=== PATIENT | female | born 1990 | race American Indian/Alaskan Native ===

== ENCOUNTER 2018-10-13 22:33 | Emergency (ER) | payer OTHER ==
[2018-10-14] MEDS ORDERED: NORCO 5/325 PO ONE (01:14)
--- NOTE | 2018-10-14 02:23 | XRay Report ---
PROCEDURE: XR NECK SOFT TISSUE TECHNIQUE: 2 views obtained of the soft tissues of the neck HISTORY: neck pain swelling COMPARISONS: No priors FINDINGS: The epiglottis is normal in contour. There is no ballooning of the hypopharynx. No prevertebral soft tissue swelling. No compromise of the airway. No steepling of the airway. IMPRESSION: Normal radiographs of the soft tissues of the neck. This document is electronically signed by Rafael Iqbal MD., October 14 2018 02:21:26 AM ET
[2018-10-14 02:27] LABS: Basophils % (Auto) 0.7 % (0.0-1.8); Eosinophils % (Auto) 0.5 % (0.0-4.3); Hemoglobin 12.1 gm/dl (10.1-14.3); Lymphocytes # (Auto) 1.8 K/mm3 (1.2-5.4); Lymphocytes % (Auto) 43.8 % (13.4-35.0); Mean Corpuscular HGB Conc 34 % (30-34); Mean Corpuscular Volume 95 fl (79-97); Monocytes # (Auto) 0.6 K/mm3 (0.0-0.8); Monocytes % (Auto) 14.5 % (0.0-7.3); Platelet Count 278 K/mm3 (140-440); Red Blood Count 3.78 M/mm3 (3.65-5.03); Red Cell Distribution Width 13.2 % (13.2-15.2)
--- NOTE | 2018-10-14 02:49 | Emergency Department Report ---
ED General Adult HPI - General Chief complaint: Skin/Abscess/Foreign Body Stated complaint: SWELLING ON RIGHT SIDE OF NECK/PAIN Time Seen by Provider: 10/14/18 01:12 Source: patient Mode of arrival: Ambulatory Limitations: No Limitations - History of Present Illness Initial comments: Patient was seizure after alert female who presents for right-sided neck swelling times 2 days his shortness of breath no wheezing no stridor States seen at urgent care treated for next spasms however pain persists patient denies fevers chills is no dysphagia there is no ear pain no sinus pressure Lopressor vertebral point tenderness range of motion is intact and unrestricted. Onset/Timin -: days(s) Location: neck Radiation: non-radiation Severity scale (0 -10): 5 Quality: aching, other (sorness ) Consistency: constant Improves with: none Worsens with: movement Associated Symptoms: denies: chest pain, cough, diaphoresis, fever/chills, headaches, loss of appetite, malaise, nausea/vomiting, rash, shortness of breath, weakness Treatments Prior to Arrival: none - Related Data Previous Rx's Medication Instructions Recorded Last Taken Type Diclofenac EC [Voltaren] 25 mg PO Q8HR PRN #60 tablet 10/14/18 Unknown Rx Menthol/Camphor [[place] 1 applicatio TP QID PRN #1 tube 10/14/18 Unknown Rx Ointment] methOCARBAMOL [Robaxin TAB] 750 mg PO BID #60 tab 10/14/18 Unknown Rx Allergies Allergy/AdvReac Type Severity Reaction Status Date / Time No Known Allergies Allergy Unverified 10/13/18 22:52 ED Review of Systems ROS: Stated complaint: SWELLING ON RIGHT SIDE OF NECK/PAIN Other details as noted in HPI Constitutional: denies: chills, fever Eyes: denies: eye pain, eye discharge, vision change ENT: denies: ear pain, throat pain, congestion Respiratory: denies: cough, shortness of breath, wheezing Cardiovascular: denies: chest pain, palpitations Endocrine: no symptoms reported Gastrointestinal: denies: abdominal pain, nausea, vomiting, diarrhea Genitourinary: denies: urgency, dysuria, discharge Musculoskeletal: denies: back pain, joint swelling, arthralgia Skin: denies: rash, lesions Neurological: denies: headache, weakness, paresthesias Psychiatric: denies: anxiety, depression Hematological/Lymphatic: denies: easy bleeding, easy bruising ED Past Medical Hx - Past Medical History Previous Medical History?: Yes Additional medical history: ovarian cyst - Surgical History Past Surgical History?: Yes Additional Surgical History: Ovarian cyst removal - Social History Smoking Status: Never Smoker Substance Use Type: None - Medications Home Medications: Home Medications Medication Instructions Recorded Confirmed Last Taken Type Diclofenac EC [Voltaren] 25 mg PO Q8HR PRN #60 tablet 10/14/18 Unknown Rx Menthol/Camphor [[place] 1 applicatio TP QID PRN #1 tube 10/14/18 Unknown Rx Ointment] methOCARBAMOL [Robaxin TAB] 750 mg PO BID #60 tab 10/14/18 Unknown Rx ED Physical Exam - General Limitations: No Limitations General appearance: alert, in no apparent distress - Head Head exam: Present: atraumatic, normocephalic - Eye Eye exam: Present: normal appearance, PERRL, EOMI Pupils: Present: normal accommodation - ENT ENT exam: Present: normal orophraynx, mucous membranes moist, TM's normal bilaterally, normal external ear exam - Neck Neck exam: Present: normal inspection, tenderness, full ROM. Absent: meningismus, lymphadenopathy, thyromegaly - Expanded Neck Exam Expanded Neck exam: Present: tenderness (right lateral neck muscle tenderness to deep palpation ). Absent: midline deformity, thyroid mass, carotid bruit, tracheal deviation - Respiratory Respiratory exam: Present: normal lung sounds bilaterally. Absent: respiratory distress, wheezes, stridor, chest wall tenderness - Cardiovascular Cardiovascular Exam: Present: regular rate, normal rhythm, normal heart sounds. Absent: systolic murmur, diastolic murmur, rubs, gallop - GI/Abdominal GI/Abdominal exam: Present: soft, normal bowel sounds. Absent: distended, tenderness, bruit, hernia - Rectal Rectal exam: Present: deferred - Extremities Exam Extremities exam: Present: normal inspection, full ROM, normal capillary refill. Absent: tenderness, pedal edema, joint swelling, calf tenderness - Back Exam Back exam: Present: normal inspection, full ROM. Absent: tenderness, CVA tende rness (R), CVA tenderness (L), rash noted - Neurological Exam Neurological exam: Present: alert, oriented X3 - Psychiatric Psychiatric exam: Present: normal affect, normal mood - Skin Skin exam: Present: warm, dry, intact, normal color. Absent: rash ED Course Vital Signs 10/13/18 10/14/18 23:03 01:48 Temperature 99.5 F Pulse Rate 99 H Respiratory 20 16 Rate Blood Pressure 117/55 O2 Sat by Pulse 100 Oximetry ED Medical Decision Making - Lab Data Result diagrams: 10/14/18 01:58 10/14/18 01:58 Labs 10/14/18 10/14/18 01:58 01:58 WBC 4.2 L RBC 3.78 Hgb 12.1 Hct 36.0 MCV 95 MCH 32 MCHC 34 RDW 13.2 Plt Count 278 Lymph % (Auto) 43.8 H [place] % (Auto) 14.5 H Eos % (Auto) 0.5 Baso % (Auto) 0.7 Lymph # 1.8 [place] # 0.6 Eos # 0.0 Baso # 0.0 Seg Neutrophils % 40.5 Seg Neutrophils # 1.7 L Sodium 137 Potassium 4.2 Chloride 100.3 Carbon Dioxide 24 Anion Gap 17 BUN 9 Creatinine 0.8 Estimated GFR > 60 BUN/Creatinine Ratio 11 Glucose 93 Calcium 9.5 - Radiology Data Radiology results: report reviewed, image reviewed Ordering Physician: SYL MICHELLE NP Date of Service: 10/14/18 Procedure(s): XR neck soft tissue Accession Number(s): [id number] cc: SYL MICHELLE NP Fluoro Time In Minutes: PROCEDURE: XR NECK SOFT TISSUE TECHNIQUE: 2 views obtained of the soft tissues of the neck HISTORY: neck pain swelling COMPARISONS: No priors FINDINGS: The epiglottis is normal in contour. There is no ballooning of the hypopharynx. No prevertebral soft tissue swelling. No compromise of the airway. No steepling of the airway. IMPRESSION: Normal radiographs of the soft tissues of the neck. This document is electronically signed by Rafael Iqbal MD., October 14 2018 02:21:26 AM ET Transcribed By: ELVA Dictated By: RAFAEL IQBAL MD Electronically Authenticated By: RAFAEL IQBAL MD Signed Date/Time: 10/14/18222 DD/ 7 TD/TT: 10/14/18137 - Medical Decision Making labs normal, Neck exray is normal no abnormality to phyiscal exam noted mild spasm to right lateral anter neck muscle , symptoms improved with medications given in ed pt will continue current augmentin, will change flexil to Methocarbamol, and Diclofenac po, [place] pt will follow up with primary [facility]ickers 1-2 days pt given refefal to same. pt for dc to homr in steable contdition in 2- 3 days. pt verbalized agreement aind understnanig with discharge plan. Critical care attestation.: If time is entered above; I have spent that time in minutes in the direct care of this critically ill patient, excluding procedure time. ED Disposition Clinical Impression: Neck pain Neck muscle strain Qualifiers: Encounter type: initial encounter Qualified Code(s): S16.1XXA - Strain of muscle, fascia and tendon at neck level, initial encounter Disposition: DC-01 TO HOME OR SELFCARE Is pt being admited?: No Does the pt Need Aspirin: No Condition: Stable Instructions: Muscle Spasm (ED), Spasmodic Torticollis (ED) Prescriptions: methOCARBAMOL [Robaxin TAB] 750 mg PO BID #60 tab Menthol/Camphor [[place] Ointment] 1 applicatio TP QID PRN #1 tube PRN Reason: muscle spasm Diclofenac EC [Voltaren] 25 mg PO Q8HR PRN #60 tablet PRN Reason: Pain , Severe (7-10) Referrals: PRIMARY CARE,MD [Primary Care Provider] - 3-5 Days
[2018-10-14 03:57] LABS: BUN/Creatinine Ratio 11; Blood Urea Nitrogen 9 mg/dL (7-17); Calcium 9.5 mg/dL (8.4-10.2); Hemolysis Index 6
[2018-10-14 04:47] VITALS: BP 101/55
== END 2018-10-14 04:48 | disposition home or self-care (01) ==
LOC: ED 22:33
DX: S16.1XXA Strain of muscle, fascia and tendon at neck level, initial encounter (principal); Z98.890 Other specified postprocedural states; X58.XXXA Exposure to other specified factors, initial encounter; Y93.89 Activity, other specified; Y92.89 Other specified places as the place of occurrence of the external cause; Y99.8 Other external cause status
CPT/HCPCS: 36415; 70360; 80048; 85025